=== PATIENT | female | born 1980 | race Caucasian/White ===

== ENCOUNTER 2019-05-21 12:58 | Outpatient (CLI) | payer OTHER ==
[~2019-05-21 12:58] MED LIST: BIOTIN PO; IBUP-1222 PO; OXYC-302 PO; PREN1TAB27 PO; VITAMIN B-12 PO
[2019-05-21] MEDS ORDERED: PREBIOTIC PO (13:22)
[2019-05-21] MEDS ORDERED: VITAMIN C PO (13:22)
[2019-05-21] MEDS ORDERED: OM3/1CAP3 PO (13:22)
[2019-05-21 13:42] LABS: BASOPHILS # (AUTO) 0.03 x10^3/uL (0-0.1); BASOPHILS % (AUTO) 1 % (0-1); EOSINOPHILS # (AUTO) 0.11 x10^3/uL (0-0.4); EOSINOPHILS % (AUTO) 2 % (1-7); LYMPHOCYTES # (AUTO) 1.56 x10^3/uL (1-3.4); LYMPHOCYTES % (AUTO) 26 % (22-44); MD NO; MEAN CORPUSCULAR HEMOGLOBIN 31.3 pg (27.0-34.8); MEAN CORPUSCULAR HGB CONC 33.2 g/dL (32.4-35.8); MEAN CORPUSCULAR VOLUME 94.5 fL (80-100); MEAN PLATELET VOLUME 9.3 fL (7.4-10.4); MONOCYTES # (AUTO) 0.48 x10^3/uL (0.2-0.8); MONOCYTES % (AUTO) 8 % (2-9); NEUTROPHILS # (AUTO) 3.72 x10^3/uL (1.8-6.8); NEUTROPHILS % (AUTO) 63 % (42-75); PLATELET COUNT 281 x10^3/uL (130-400); RED BLOOD COUNT 4.84 x10^6/uL (3.82-5.3); RED CELL DISTRIBUTION WIDTH 12.8 % (9.6-15.2)
[2019-05-21 13:43] LABS: HCG UR SG 1.004 (1.003-1.030)
[2019-05-21 13:56] LABS: ANION GAP 6 mmol/L (5-15); CALCIUM 8.9 mg/dL (8.5-10.1); CHLORIDE 109 mmol/L (98-107); CREATININE 0.61 mg/dL (0.55-1.02)
== END 2019-05-21 23:59 | disposition home or self-care (01) ==
LOC: STAR 12:58
PROVIDERS: ATTEND Obstetrics & Gynecology Gynecology
DX: Z01.818 Encounter for other preprocedural examination (principal)
CPT/HCPCS: 36415; 80048; 81025; 85025

== ENCOUNTER 2019-05-30 08:52 | Day surgery (SDC) | payer OTHER ==
[2019-05-21 13:16] VITALS: BP 116/78
[~2019-05-30] VITALS: Ht 165.1 cm; Wt 58.1 kg
[~2019-05-30 08:52] MED LIST changes: +OM3/1CAP3 PO; +PREBIOTIC PO; +VITAMIN C PO
[2019-05-30] MEDS ORDERED: LACTATED RINGERS 1,000 ML IV SCH (09:23)
[2019-05-30 09:36] LABS: HCG UR SG 1.024 (1.003-1.030)
[2019-05-30] MEDS ORDERED: APREPITANT 40 MG CAPSULE ONE ×2 (10:51→11:06)
[2019-05-30] MEDS ORDERED: GABAPENTIN 300 MG CAPSULE ONE (10:52)
[2019-05-30] MEDS ORDERED: FENTANYL PF 250 MCG/5ML ONE (10:56)
[2019-05-30] MEDS ORDERED: MIDAZOLAM 1 MG/ML, 2ML ONE (10:56)
[2019-05-30] MEDS ORDERED: MEPERIDINE/PF 100 MG/ML ONE (12:16)
[2019-05-30] MEDS ORDERED: hydrALAzine 20 MG/ML, 1ML IV PRN (13:00)
[2019-05-30] MEDS ORDERED: OXYcodone 5 MG/5 ML ORAL.SOL UDC PO PRN ×2 (13:00→13:30)
[2019-05-30] MEDS ORDERED: MEPERIDINE/PF 25MG/ML,1ML IVPush PRN (13:00)
[2019-05-30] MEDS ORDERED: PROMETHAZINE 25 MG/ML, 1ML IV PRN (13:00)
[2019-05-30] MEDS ORDERED: ACETAMINOPHEN 325 MG TABLET PO PRN (13:00)
[2019-05-30] MEDS ORDERED: HYDROmorphone 2 MG/ML, 1ML IVPush PRN ×2 (13:00→13:30)
[2019-05-30] MEDS ORDERED: FENTANYL PF 100 MCG/2ML ONE (13:19)
[2019-05-30] MEDS ORDERED: OXYcodone 5 MG/5 ML ORAL.SOL UDC ONE (13:19)
[2019-05-30] MEDS: FENTANYL PF 100 MCG/2ML IV PRN ×2 (13:22→13:43)
[2019-05-30] MEDS ORDERED: ONDANSETRON 2MG/ML, 2ML ONE (16:10)
[2019-05-30] MEDS ORDERED: KETOROLAC 30 MG/1 ML ONE (16:10)
[2019-05-30] MEDS ORDERED: SUGAMMADEX 200 MG/2 ML IVPush ONE (16:10)
[2019-05-30] MEDS ORDERED: CEFOTETAN 2 GM ONE (16:10)
[2019-05-30] MEDS ORDERED: PROPOFOL 10 MG/ML, 20ML ONE (16:10)
[2019-05-30] MEDS ORDERED: DEXAMETHASONE 4 MG/ML, 1ML ONE (16:10)
[2019-05-30] MEDS ORDERED: ROCURONIUM 10MG/ML,5ML ONE (16:10)
== END 2019-05-30 16:45 | disposition home or self-care (01) ==
LOC: OUT 08:52
PROVIDERS: ATTEND Obstetrics & Gynecology Gynecology
DX: D06.9 Carcinoma in situ of cervix, unspecified (principal); Z98.890 Other specified postprocedural states; Z82.3 Family history of stroke
CPT/HCPCS: 58552; 81025; 88309; J1100; J1885; J2175; J2250; J2405; J2704; J3010; J3490; J7120; J8501; S2900